=== PATIENT | male | born 1940 | race Caucasian/White ===

== ENCOUNTER 2016-11-12 12:27 | Emergency (ER) | payer MEDICARE ==
[~2016-11-12] VITALS: Ht 175.3 cm; Wt 102.8 kg
[~2016-11-12 12:27] MED LIST: ASPI-621 PO; LISI-170 PO
[2016-11-12] MEDS ORDERED: SODIUM CHLORIDE 0.9% 1,000 ML IV ONE (12:55)
[2016-11-12] MEDS ORDERED: METF500T4 PO (12:57)
[2016-11-12] MEDS ORDERED: EPIN0.3P3 INJ (12:57)
[2016-11-12] MEDS ORDERED: EPINEPHRINE 1 MG/ML, 1ML SQ ONE (13:00)
[2016-11-12] MEDS ORDERED: DIPHENHYDRAMINE 50 MG/ML, 1ML IVPush ONE (13:00)
[2016-11-12] MEDS ORDERED: FAMOTIDINE 20 MG/2 ML IVPush ONE (13:00)
[2016-11-12] MEDS ORDERED: SODIUM CHLORIDE FLUSH 10ML SYR IVF ONE (13:00)
[2016-11-12] MEDS ORDERED: methylPREDNISolone SOD SUCC 125 MG/2 ML IVPush ONE (13:00)
[2016-11-12] MEDS ORDERED: DIPHENHYDRAMINE 50 MG/ML, 1ML ONE (13:09)
[2016-11-12] MEDS ORDERED: EPINEPHRINE 1 MG/ML, 1ML ONE (13:09)
[2016-11-12] MEDS ORDERED: methylPREDNISolone SOD SUCC 125 MG/2 ML ONE (13:09)
[2016-11-12] MEDS ORDERED: FAMOTIDINE 20 MG/2 ML ONE (13:10)
[2016-11-12 14:57] VITALS: BP 120/67
== END 2016-11-12 14:59 | disposition home or self-care (01) ==
LOC: ED 13:11
DX: L50.0 Allergic urticaria (principal); J98.01 Acute bronchospasm; I10 Essential (primary) hypertension
CPT/HCPCS: 93005; 96361; 96372; 96374; 96375; 99285; J0171; J1200; J2930; J7030; S0028

== ENCOUNTER → 2017-09-14 | Outpatient (CLI) | payer MEDICARE ==
[~2017-09-14] MED LIST changes: +EPIN0.3P3 INJ; +METF500T4 PO
== END | disposition home or self-care (01) ==
LOC: RAD 15:42
PROVIDERS: ATTEND Family Medicine
DX: G31.89 Other specified degenerative diseases of nervous system (principal); J34.89 Other specified disorders of nose and nasal sinuses
CPT/HCPCS: 70551

== ENCOUNTER → 2017-12-31 | Outpatient (CLI) | payer MEDICARE | LOC: CFH 08:08 → EDSTATUS 08:45 | PROVIDERS: ATTEND Registered Nurse | DX: J32.9 Chronic sinusitis, unspecified (principal) | CPT/HCPCS: 70486 ==

== ENCOUNTER → 2018-06-23 | Outpatient (CLI) | payer MEDICARE ==
[~2018-06-23] MED LIST changes: +METF500T17 PO; -METF500T4 PO
== END | disposition home or self-care (01) ==
LOC: CARD 09:25
PROVIDERS: ATTEND Internal Medicine Cardiovascular Disease
DX: I25.9 Chronic ischemic heart disease, unspecified (principal)
CPT/HCPCS: 93017; 93350

== ENCOUNTER 2018-08-21 10:34 | Emergency (ER) | payer MEDICARE ==
[~2018-08-21] VITALS: Ht 167.6 cm; Wt 101.6 kg
[~2018-08-21 10:34] MED LIST changes: -ASPI-621 PO; +ASPI81TA45 PO
--- NOTE | 2018-08-21 10:57 | NUR ---
from lobby to room at this time
[2018-08-21] MEDS ORDERED: OXYcodone/APAP 5/325MG TABLET PO ONE (11:00)
[2018-08-21] MEDS ORDERED: ONDANSETRON ODT 4 MG PO ONE (11:00)
[2018-08-21] MEDS ORDERED: OXYcodone/APAP 5/325MG TABLET ONE (11:11)
[2018-08-21] MEDS ORDERED: ONDANSETRON ODT 4 MG ONE (11:11)
--- NOTE | 2018-08-21 11:15 | NUR ---
PT PRESENTING TO ER FOR LEFT SIDE CHEST PAIN RADIATING TO BACK CAUSING SOB, RASH TO LEFT SIDE CHEST AROUND TO BACK WITH APPEARANCE OF SHINGLES X3 DAYS. PAIN IN CHEST X 10 DAYS. CONNECTED TO ALL MONITORING, HTN, OTHER VSS. AT BEDSIDE. PIT ORDERS RECEIVED. LABS DRAWN, PT MEDICATED PER OCT. MD AT BEDSIDE FOR FURTHER ASSESSMENT. CALL LIGHT WITHIN REACH. AWAITING TESTING AND RESULTS AT THIS TIME.
[2018-08-21 11:20] LABS: BASOPHILS # (AUTO) 0.02 x10^3/uL (0-0.1); BASOPHILS % (AUTO) 0 % (0-1); EOSINOPHILS # (AUTO) 0.01 x10^3/uL (0-0.4); EOSINOPHILS % (AUTO) 0 % (1-7); LYMPHOCYTES # (AUTO) 1.26 x10^3/uL (1-3.4); LYMPHOCYTES % (AUTO) 11 % (22-44); MD NO; MEAN CORPUSCULAR HEMOGLOBIN 30.3 pg (27.5-34.5); MEAN CORPUSCULAR VOLUME 89.1 fL (81-97); MEAN PLATELET VOLUME 7.7 fL (7.4-10.4); MONOCYTES # (AUTO) 0.83 x10^3/uL (0.2-0.8); MONOCYTES % (AUTO) 7 % (2-9); NEUTROPHILS # (AUTO) 9.31 x10^3/uL (1.8-6.8); NEUTROPHILS % (AUTO) 82 % (42-75); PLATELET COUNT 244 x10^3/uL (130-400); RED BLOOD COUNT 5.33 x10^6/uL (4.38-5.82); RED CELL DISTRIBUTION WIDTH 13.6 % (9.4-14.8)
[2018-08-21 11:28] LABS: ALBUMIN 4.1 g/dL (3.4-5.0); ANION GAP 11 mmol/L (5-15); CALCIUM 9.3 mg/dL (8.5-10.1); CHLORIDE 102 mmol/L (98-107); CREATININE 1.28 mg/dL (0.7-1.3)
[2018-08-21] MEDS ORDERED: GABAPENTIN 300 MG CAPSULE PO ONE (11:30)
[2018-08-21 11:31] LABS: TROPONIN I 0.044 ng/mL (0.000-0.045)
[2018-08-21] MEDS ORDERED: GABAPENTIN 300 MG CAPSULE ONE (11:34)
[2018-08-21 11:49] VITALS: BP 142/88
--- NOTE | 2018-08-21 11:50 | NUR ---
PT MEDICATED WITH ADDITIONAL MEDS. PT REPORTING PAIN NOW 01/16, TECH AT BEDSIDE FOR REPEAT EKG. ALL RESULTS BACK AT THIS TIME, CHART UP RECHECK.
[2018-08-21] MEDS ORDERED: VALACYCLOVIR 500MG TABLET PO ONE (12:00)
--- NOTE | 2018-08-21 12:26 | NUR ---
PAIN IS CONTROLLED AT THIS TIME. 12/16 DOWN FROM 04/18 UPON ARRIVAL. AWAITING DISPO. VSS.
== END 2018-08-21 12:58 | disposition home or self-care (01) ==
LOC: ED 12:57
DX: B02.9 Zoster without complications (principal); R07.89 Other chest pain; M54.6 Pain in thoracic spine; I10 Essential (primary) hypertension
CPT/HCPCS: 36415; 71046; 80048; 82040; 84484; 85025; 93005; 99284; Q0162

== ENCOUNTER 2019-02-15 11:33 | Day surgery (SDC) | payer MEDICARE ==
[2019-02-14 09:08] LABS: ALANINE AMINOTRANSFERASE 27 U/L (12-78); ALBUMIN 3.9 g/dL (3.4-5.0); ANION GAP 7 mmol/L (5-15); CALCIUM 9.6 mg/dL (8.5-10.1); CHLORIDE 107 mmol/L (98-107); CREATININE 1.22 mg/dL (0.7-1.3)
[2019-02-14 09:11] LABS: ALKALINE PHOSPHATASE 69 U/L (45-117); BILIRUBIN,TOTAL 0.7 mg/dL (0.2-1.0); TOTAL PROTEIN 7.3 g/dL (6.4-8.2)
[~2019-02-15] VITALS: Ht 175.3 cm; Wt 98.9 kg
[~2019-02-15 11:33] MED LIST changes: +ATOR40TA78 PO; +LEVO100T5 PO; +METF10007 PO; +PREG200C PO
[2019-02-15] MEDS ORDERED: SCOPOLAMINE PATCH, 1.5MG PATCH.TD72 TD ONE (12:00)
[2019-02-15] MEDS ORDERED: LIDOCAINE TD (12:00)
[2019-02-15] MEDS ORDERED: GABAPENTIN 300 MG CAPSULE PO ONE (12:00)
[2019-02-15] MEDS ORDERED: ACETAMINOPHEN 500 MG TABLET PO ONE (12:00)
[2019-02-15] MEDS ORDERED: LACTATED RINGERS 1,000 ML IV SCH (12:01)
[2019-02-15 12:03] VITALS: BP 129/78
[2019-02-15] MEDS ORDERED: FENTANYL PF 250 MCG/5ML ONE (12:03)
[2019-02-15] MEDS ORDERED: MIDAZOLAM 1 MG/ML, 2ML ONE (12:03)
[2019-02-15] MEDS ORDERED: CEFAZOLIN 1,000 MG ONE (13:31)
[2019-02-15] MEDS ORDERED: SUCCINYLCHOLINE 20 MG/ML, 10ML ONE (13:31)
[2019-02-15] MEDS ORDERED: DEXAMETHASONE 4 MG/ML, 5ML ONE (13:31)
[2019-02-15] MEDS ORDERED: ONDANSETRON 2MG/ML, 2ML ONE (13:31)
[2019-02-15] MEDS ORDERED: ROCURONIUM 10 MG/ML,10ML ONE (13:31)
[2019-02-15] MEDS ORDERED: PROPOFOL 10 MG/ML, 20ML ONE (13:31)
[2019-02-15] MEDS ORDERED: hydrALAzine 20 MG/ML, 1ML IV PRN (14:00)
[2019-02-15] MEDS ORDERED: OXYcodone 5 MG/5 ML ORAL.SOL UDC PO PRN (14:00)
[2019-02-15] MEDS ORDERED: FENTANYL PF 100 MCG/2ML IV PRN (14:00)
[2019-02-15] MEDS ORDERED: PROMETHAZINE 25 MG/ML, 1ML IV PRN (14:00)
[2019-02-15] MEDS ORDERED: KETOROLAC 30 MG/1 ML IV PRN (14:00)
[2019-02-15] MEDS ORDERED: ONDANSETRON 2MG/ML, 2ML IVPush PRN (14:00)
[2019-02-15] MEDS ORDERED: ALBUTEROL SULFATE 2.5 MG/3 ML NPPB PRN (14:00)
[2019-02-15] MEDS ORDERED: HYDROmorphone 1 MG/ML, 1ML INJ IV PRN (14:00)
[2019-02-15] MEDS ORDERED: MEPERIDINE/PF 25MG/0.5ML IVPush PRN (14:00)
[2019-02-15] MEDS ORDERED: LABETALOL 5MG/ML, 20ML IV PRN (14:00)
[2019-02-15] MEDS ORDERED: METOCLOPRAMIDE 5 MG/ML, 2ML IV PRN (14:00)
[2019-02-15] MEDS ORDERED: BUPIVACAINE/PF-EPI 0.25% 1:200K INFIL ONE (14:04)
[2019-02-15] MEDS ORDERED: hydrALAzine 20 MG/ML, 1ML ONE (15:44)
== END 2019-02-15 17:35 | disposition home or self-care (01) ==
LOC: OUT 11:33
PROVIDERS: ATTEND Orthopaedic Surgery
DX: S46.111A Strain of muscle, fascia and tendon of long head of biceps, right arm, initial encounter (principal); S43.431A Superior glenoid labrum lesion of right shoulder, initial encounter; M75.111 Incomplete rotator cuff tear or rupture of right shoulder, not specified as traumatic; M75.41 Impingement syndrome of right shoulder; M94.211 Chondromalacia, right shoulder; E11.9 Type 2 diabetes mellitus without complications; Z88.4 Allergy status to anesthetic agent; Z79.899 Other long term (current) drug therapy; X58.XXXA Exposure to other specified factors, initial encounter; Y93.89 Activity, other specified; Y92.89 Other specified places as the place of occurrence of the external cause; Y99.8 Other external cause status; Z79.84 Long term (current) use of oral hypoglycemic drugs
CPT/HCPCS: 29823; 29826; 29827; 36415; 64415; 80053; 82962; C1713; J0330; J0690; J1100; J2250; J2405; J2704; J3010; J7120

== ENCOUNTER → 2020-05-31 | Outpatient (CLI) | payer MEDICARE ==
[~2020-05-31] MED LIST changes: +LEVO125T5 PO; +LIDOCAINE TD
[2020-05-31 14:43] LABS: ALANINE AMINOTRANSFERASE 41 U/L (12-78); ALBUMIN 3.7 g/dL (3.4-5.0); ANION GAP 4 mmol/L (5-15); CALCIUM 9.1 mg/dL (8.5-10.1); CHLORIDE 103 mmol/L (98-107)
[2020-05-31 14:46] LABS: ALKALINE PHOSPHATASE 82 U/L (45-117); BILIRUBIN,TOTAL 0.5 mg/dL (0.2-1.0); CREATININE 1.28 mg/dL (0.7-1.3); TOTAL PROTEIN 7.3 g/dL (6.4-8.2)
== END | disposition home or self-care (01) ==
LOC: STAR 13:03
PROVIDERS: ATTEND Orthopaedic Surgery
DX: Z01.812 Encounter for preprocedural laboratory examination (principal); Z20.828 Contact with and (suspected) exposure to other viral communicable diseases; S46.012A Strain of muscle(s) and tendon(s) of the rotator cuff of left shoulder, initial encounter; M75.42 Impingement syndrome of left shoulder; X58.XXXA Exposure to other specified factors, initial encounter; Y93.89 Activity, other specified; Y92.89 Other specified places as the place of occurrence of the external cause; Y99.8 Other external cause status
CPT/HCPCS: 36415; 80053; 87635; 93005

== ENCOUNTER 2020-06-05 05:08 | Day surgery (SDC) | payer MEDICARE ==
[~2020-06-05] VITALS: Ht 175.3 cm; Wt 103.1 kg
[2020-06-05] MEDS ORDERED: CHLORHEXIDINE 15 ML UDC ONE (05:29)
[2020-06-05] MEDS ORDERED: LACTATED RINGERS 1,000 ML IV SCH (05:30)
[2020-06-05] MEDS ORDERED: CHLORHEXIDINE 15 ML UDC MM ONE (05:30)
[2020-06-05 05:32] VITALS: BP 124/83
[2020-06-05] MEDS ORDERED: BUPIVACAINE/PF 0.25% ONE (06:11)
[2020-06-05] MEDS ORDERED: EPINEPHRINE 1 MG/ML, 1ML ONE (06:12)
[2020-06-05] MEDS ORDERED: FENTANYL PF 250 MCG/5ML ONE (06:20)
[2020-06-05] MEDS ORDERED: PROPOFOL 50 ML ONE (07:00)
[2020-06-05] MEDS ORDERED: LIDOCAINE 2%, 20ML ONE (07:04)
[2020-06-05] MEDS ORDERED: NEOSTIGMINE 1 MG/ML, 10ML ONE (07:44)
[2020-06-05] MEDS ORDERED: PROPOFOL 10 MG/ML, 20ML ONE (07:44)
[2020-06-05] MEDS ORDERED: DEXAMETHASONE 4 MG/ML, 1ML ONE (07:44)
[2020-06-05] MEDS ORDERED: GLYCOPYRROLATE 0.2MG/1ML, 5ML ONE (07:44)
[2020-06-05] MEDS ORDERED: SUCCINYLCHOLINE 20 MG/ML, 10ML ONE (07:44)
[2020-06-05] MEDS ORDERED: ONDANSETRON 2MG/ML, 2ML ONE (07:44)
[2020-06-05] MEDS ORDERED: ROCURONIUM 10MG/ML,5ML ONE (07:44)
[2020-06-05] MEDS ORDERED: CEFAZOLIN 1,000 MG ONE (07:44)
[2020-06-05] MEDS ORDERED: ONDANSETRON 2MG/ML, 2ML IVPush PRN (08:00)
[2020-06-05] MEDS ORDERED: METHOCARBAMOL 1,000 MG in DEXTROSE 5% 100 ML IV PRN (08:00)
[2020-06-05] MEDS ORDERED: HYDROmorphone 1 MG/ML, 1ML INJ IVPush PRN (08:00)
[2020-06-05] MEDS ORDERED: KETOROLAC 30 MG/1 ML IVPush PRN (08:00)
[2020-06-05] MEDS ORDERED: OXYcodone 5 MG/5 ML ORAL.SOL UDC PO PRN (08:00)
[2020-06-05] MEDS ORDERED: PROMETHAZINE 25 MG/ML, 1ML IVPush PRN (08:00)
[2020-06-05] MEDS ORDERED: LORazepam 2 MG/ML, 1ML IVPush PRN (08:00)
[2020-06-05] MEDS ORDERED: hydrALAzine 20 MG/ML, 1ML IV PRN (08:00)
[2020-06-05] MEDS ORDERED: ACETAMINOPHEN 325 MG TABLET PO PRN (08:00)
[2020-06-05] MEDS ORDERED: FENTANYL PF 100 MCG/2ML IV PRN (08:00)
[2020-06-05] MEDS ORDERED: MEPERIDINE/PF 25MG/0.5ML IVPush PRN (08:00)
[2020-06-05] MEDS ORDERED: LABETALOL 5MG/ML, 20ML IV PRN (08:00)
[2020-06-05] MEDS ORDERED: OXYcodone 5 MG/5 ML ORAL.SOL UDC ONE (08:56)
== END 2020-06-05 10:00 | disposition home or self-care (01) ==
LOC: OUT 05:08
PROVIDERS: ATTEND Orthopaedic Surgery
DX: S46.012A Strain of muscle(s) and tendon(s) of the rotator cuff of left shoulder, initial encounter (principal); S43.432A Superior glenoid labrum lesion of left shoulder, initial encounter; S46.112A Strain of muscle, fascia and tendon of long head of biceps, left arm, initial encounter; M75.42 Impingement syndrome of left shoulder; M94.212 Chondromalacia, left shoulder; G50.0 Trigeminal neuralgia; E11.9 Type 2 diabetes mellitus without complications; Z79.84 Long term (current) use of oral hypoglycemic drugs; Z79.899 Other long term (current) drug therapy; Z90.89 Acquired absence of other organs; Z98.52 Vasectomy status; Z98.890 Other specified postprocedural states; X50.1XXA Overexertion from prolonged static or awkward postures, initial encounter; Y93.H1 Activity, digging, shoveling and raking; Y92.89 Other specified places as the place of occurrence of the external cause; Y99.8 Other external cause status
CPT/HCPCS: 29823; 29826; 29827; 64415; 82962; C1713; J0171; J0330; J0690; J1100; J2405; J2704; J2710; J3010; J7120